=== PATIENT | female | born 1990 | race Two or more races ===

== ENCOUNTER 2017-10-23 15:13 | Emergency (ER) | payer BC, MEDICAID ==
[~2017-10-23] VITALS: Ht 180.3 cm; Wt 108.9 kg
[2017-10-23 17:30] VITALS: BP 167/81
== END 2017-10-23 18:11 | disposition home or self-care (01) ==
LOC: ER 15:18
DX: J20.9 Acute bronchitis, unspecified (principal)
CPT/HCPCS: 71046